=== PATIENT | female | born 1975 | race Two or more races ===

== ENCOUNTER 2021-06-21 12:10 | Inpatient (IN) | payer MEDICAID, OTHER ==
[~2021-06-21] VITALS: Ht 154.9 cm; Wt 57.6 kg
[2021-06-21] MEDS: BLOOD SUGAR DIAGNOSTIC STRIP TEST SCH ×5 (08:00→18:08)
[2021-06-21] MEDS ORDERED: SODIUM CHLORIDE 0.9% 1,000 ML IV ONE (12:45)
[2021-06-21 12:54] LABS: HEMATOCRIT. 42.6 % (36.0-48.0); HEMOGLOBIN. 13.2 g/dL (12.0-16.0); MEAN CORPUSCULAR HEMOGLOBIN 30.3 pg (28.0-32.0); MEAN CORPUSCULAR VOLUME 97.9 fL (81.0-99.0); MEAN PLATELET VOLUME 7.6 fl (7.4-10.4); PLATELET 530 x1000/uL (130-400); RED BLOOD CELL COUNT 4.36 mill/uL (4.2-5.4); RED CELL DISTRIBUTION WIDTH 13.5 % (11.6-14.6)
[2021-06-21 13:00] LABS: CHLORIDE 101 mEq/L (98-107); CLARITY URINE CLEAR (CLEAR); COLOR URINE YELLOW (YELLOW); KETONES URINE 4+ (NEGATIVE); LEUKOCYTE ESTERASE URINE NEGATIVE (NEGATIVE); NITRITE URINE NEGATIVE (NEGATIVE); OCCULT BLOOD URINE 1+ (NEGATIVE); PROTEIN URINE 2+ (NEGATIVE); SPECIFIC GRAVITY URINE 1.032 (1.005-1.030); UROBILINOGEN URINE 0.2 E.U./dL (0.2-1.0)
[2021-06-21] MEDS ORDERED: SODIUM BICARBONATE 50 MEQ in SODIUM CHLORIDE 0.45% 1,000 ML IV SCH (13:15)
[2021-06-21] MEDS ORDERED: INSULIN REGULAR (DRIP) 100 UNITS in SODIUM CHLORIDE 0.9% 100 ML IV ONE (13:15)
[2021-06-21 13:23] LABS: HCG SCREEN NEGATIVE
[2021-06-21 13:32] LABS: PLATELET ESTIMATE MARKEDLY INCREASED
[2021-06-21] MEDS ORDERED: INSULIN REGULAR (DRIP) 100 UNITS in SODIUM CHLORIDE 0.9% 99 ML IV SCH (14:30)
[2021-06-21] MEDS ORDERED: DEXTROSE 50% WATER 50ML SYRINGE IV PRN ×2 (14:30)
[2021-06-21] MEDS ORDERED: CEFTRIAXONE 1 G PREMIX 50 ML IV ONE (17:15)
[2021-06-21 19:15] LABS: PHOSPHORUS 4.4 mg/dL (2.5-4.9)
[2021-06-21 19:17] LABS: CHLORIDE 110 mEq/L (98-107)
[2021-06-21] MEDS ORDERED: SODIUM BICARBONATE 8.4% 1 MEQ/ML 50ML SYR IV ONE (19:45)
[2021-06-21] MEDS ORDERED: DEXT 5%/0.45% NACL 1000ML 1,000 ML IV SCH (20:45)
[2021-06-21 23:56] LABS: CHLORIDE 112 mEq/L (98-107)
[2021-06-22] VITALS (10 sets, daily range): BP systolic 130–159; BP diastolic 76–102
[2021-06-22 00:16] LABS: PHOSPHORUS 0.9 mg/dL (2.5-4.9)
[2021-06-22] MEDS ORDERED: KCL 20MEQ/100ML PREMIX 100 ML IV SCH (01:15)
[2021-06-22] MEDS ORDERED: POTASSIUM PHOS,M-BASIC-D-BASIC 20 MMOL in DEXTROSE 5% WATER 250 ML IV NR (01:30)
[2021-06-22 05:05] LABS: CHLORIDE 110 mEq/L (98-107)
[2021-06-22] MEDS: KCL 20MEQ/100ML PREMIX 100 ML IV SCH ×3 (07:43→10:00)
[2021-06-22] MEDS: BLOOD SUGAR DIAGNOSTIC STRIP TEST SCH ×7 (11:08→23:00)
[2021-06-22] MEDS: ONDANSETRON HCL 4MG/2ML INJ IV PRN (13:53)
[2021-06-22] MEDS: METOCLOPRAMIDE HCL 10MG/2ML VIAL IV SCH ×2 (14:02→18:17)
[2021-06-22] MEDS ORDERED: IPRATROPIUM/ALBUTEROL 0.5-3(2.5)MG/3ML NEB HHN PRN (15:30)
[2021-06-22] MEDS ORDERED: CEFTRIAXONE 1 G PREMIX 50 ML IV SCH (15:30)
[2021-06-22] MEDS ORDERED: HYDROCODONE/ACETAMINOPHEN 5/325MG TABLET PO PRN (15:30)
[2021-06-22] MEDS ORDERED: DOCUSATE SODIUM 100MG CAPSULE PO PRN (15:30)
[2021-06-22] MEDS ORDERED: MAGNESIUM/ALUMINUM HYDROXIDE/SIMETHICONE 30ML UDC PO PRN (15:30)
[2021-06-22] MEDS ORDERED: ACETAMINOPHEN 325MG TABLET PO PRN (15:30)
[2021-06-22] MEDS ORDERED: CLONIDINE 0.1MG TABLET PO PRN (15:30)
[2021-06-22] MEDS ORDERED: DEXT 5%/0.45% NACL 1000ML 1,000 ML IV SCH (15:30)
[2021-06-22 17:32] LABS: HEMATOCRIT. 33.5 % (36.0-48.0); HEMOGLOBIN. 11.4 g/dL (12.0-16.0); MEAN CORPUSCULAR HEMOGLOBIN 29.9 pg (28.0-32.0); MEAN PLATELET VOLUME 7.3 fl (7.4-10.4); PLATELET 377 x1000/uL (130-400); RED BLOOD CELL COUNT 3.81 mill/uL (4.2-5.4); RED CELL DISTRIBUTION WIDTH 12.3 % (11.6-14.6)
[2021-06-22] MEDS: DEXT 5%/0.45% NACL KCL 20MEQ/L 1,000 ML IV SCH (17:38)
[2021-06-22 17:40] LABS: CHLORIDE 108 mEq/L (98-107)
[2021-06-22] MEDS: CEFTRIAXONE 1,000 MG in DEXTROSE 5% WATER 50 ML IV SCH (17:42)
[2021-06-22 18:14] LABS: PLATELET ESTIMATE NORMAL
[2021-06-22 19:38] LABS: CLARITY URINE CLEAR (CLEAR); COLOR URINE YELLOW (YELLOW); KETONES URINE 2+ (NEGATIVE); LEUKOCYTE ESTERASE URINE NEGATIVE (NEGATIVE); NITRITE URINE NEGATIVE (NEGATIVE); OCCULT BLOOD URINE NEGATIVE (NEGATIVE); PROTEIN URINE 3+ (NEGATIVE); SPECIFIC GRAVITY URINE 1.016 (1.005-1.030)
[2021-06-22 19:47] LABS: OPIATES URINE SCREEN NEGATIVE (NEGATIVE)
[2021-06-22 19:49] LABS: *AMPHETAMINES SCREEN URINE NEGATIVE (NEGATIVE); *BARBITURATES SCREEN URINE NEGATIVE (NEGATIVE); *BENZODIAZEPINES SCREEN URINE NEGATIVE (NEGATIVE); *COCAINE SCREEN URINE NEGATIVE (NEGATIVE); CANNABINOID URINE SCREEN NEGATIVE (NEGATIVE); METHADONE URINE SCREEN NEGATIVE (NEGATIVE); PHENCYCLIDINE URINE SCREEN NEGATIVE (NEGATIVE)
[2021-06-22] MEDS: ENOXAPARIN 40MG/0.4ML SYR SUBCUT SCH (21:11)
[2021-06-23] VITALS (21 sets, daily range): BP systolic 123–148; BP diastolic 58–106
[2021-06-23] MEDS: METOCLOPRAMIDE HCL 10MG/2ML VIAL IV SCH ×5 (00:59→23:30)
[2021-06-23] MEDS: BLOOD SUGAR DIAGNOSTIC STRIP TEST SCH ×16 (01:00→21:12)
[2021-06-23] MEDS: DEXT 5%/0.45% NACL KCL 20MEQ/L 1,000 ML IV SCH ×2 (01:00→08:42)
[2021-06-23 01:14] LABS: CHLORIDE 111 mEq/L (98-107)
[2021-06-23] MEDS: ONDANSETRON HCL 4MG/2ML INJ IV PRN ×2 (05:00→13:00)
[2021-06-23 06:00] LABS: HEMATOCRIT. 37.5 % (36.0-48.0); HEMOGLOBIN. 12.6 g/dL (12.0-16.0); MEAN CORPUSCULAR HEMOGLOBIN 30.1 pg (28.0-32.0); MEAN CORPUSCULAR VOLUME 89.8 fL (81.0-99.0); MEAN PLATELET VOLUME 7.7 fl (7.4-10.4); PLATELET 372 x1000/uL (130-400); RED BLOOD CELL COUNT 4.18 mill/uL (4.2-5.4); RED CELL DISTRIBUTION WIDTH 12.4 % (11.6-14.6)
[2021-06-23 06:25] LABS: CHLORIDE 109 mEq/L (98-107)
[2021-06-23 06:41] LABS: LDL CHOLESTEROL 63 mg/dL (5-100)
[2021-06-23 06:42] LABS: HDL CHOLESTEROL 45 mg/dL (40-59); PHOSPHORUS 1.5 mg/dL (2.5-4.9); T4 FREE 1.44 ng/dL (0.76-1.46)
[2021-06-23] MEDS: PANTOPRAZOLE SODIUM 40 MG/VIAL IV SCH (08:40)
[2021-06-23 09:27] LABS: CHLORIDE 110 mEq/L (98-107)
[2021-06-23] MEDS ORDERED: LIDOCAINE HCL/PF 1% 2ML VIAL ONE (10:09)
[2021-06-23 10:31] LABS: BG BASE EXCESS -3.8 mmol/L (-2.0-2.0); BG CARBOXYHEMOGLOBIN 0.7 % (0.5-1.5); BG DEOXYHEMOGLOBIN 4.1 % (0.0-5.0); BG HCO3 ACT 18.8 mmol/L (22.0-26.0); BG OXYGEN SATURATION 95.9 % (92.0-98.5); BG OXYHEMOGLOBIN 95.2 % (94.0-97.0); BG PCO2 27.1 mmHg (35.0-45.0); BG PH 7.458 (7.350-7.450); BG PO2 70.5 mmHg (75.0-100.0); BG SAMPLE SITE RIGHT RADIAL; BG TOTAL HEMOGLOBIN 12.1 g/dL (12.0-18.0); BG VENT MODE ROOM AIR
[2021-06-23] MEDS ORDERED: INSULIN GLARGINE UD 100 UNITS/ML SYR SUBCUT NR (11:30)
[2021-06-23] MEDS: INSULIN LISPRO 100 UNITS/ML SUBCUT SCH ×3 (12:39→21:30)
[2021-06-23] MEDS ORDERED: MAGNESIUM 2 G PREMIX 50 ML IV NR (17:30)
[2021-06-23] MEDS ORDERED: POTASSIUM PHOS,M-BASIC-D-BASIC 20 MMOL in DEXT 5% WATER 243.3333 ML IV NR (17:30)
[2021-06-23 17:32] LABS: PLATELET ESTIMATE NORMAL
[2021-06-23] MEDS: CEFTRIAXONE 1,000 MG in DEXTROSE 5% WATER 50 ML IV SCH (17:50)
[2021-06-23] MEDS: ENOXAPARIN 40MG/0.4ML SYR SUBCUT SCH (21:30)
[2021-06-23] MEDS ORDERED: INSULIN GLARGINE UD 100 UNITS/ML SYR SUBCUT SCH (22:00)
[2021-06-24 00:20] VITALS: BP 142/77
[2021-06-24 01:04] LABS: CHLORIDE 107 mEq/L (98-107)
[2021-06-24] MEDS ORDERED: POTASSIUM CHLORIDE INJ 60 MEQ in DEXT 5% WATER 500 ML IV SCH (02:30)
[2021-06-24] MEDS ORDERED: POTASSIUM CHLORIDE INJ 60 MEQ in DEXT 5% WATER 250 ML IV SCH (02:30)
[2021-06-24 03:20] VITALS: BP 115/76
[2021-06-24] MEDS: METOCLOPRAMIDE HCL 10MG/2ML VIAL IV SCH ×3 (05:33→17:03)
[2021-06-24] MEDS: BLOOD SUGAR DIAGNOSTIC STRIP TEST SCH ×3 (07:43→16:56)
[2021-06-24 08:00] VITALS: BP 102/87
[2021-06-24] MEDS: INSULIN LISPRO 100 UNITS/ML SUBCUT SCH ×3 (08:20→17:05)
[2021-06-24] MEDS: PANTOPRAZOLE SODIUM 40 MG/VIAL IV SCH (08:21)
[2021-06-24 09:36] LABS: HEMATOCRIT. 34.6 % (36.0-48.0); HEMOGLOBIN. 11.7 g/dL (12.0-16.0); MEAN CORPUSCULAR HEMOGLOBIN 29.7 pg (28.0-32.0); MEAN CORPUSCULAR VOLUME 87.9 fL (81.0-99.0); MEAN PLATELET VOLUME 6.8 fl (7.4-10.4); PLATELET 412 x1000/uL (130-400); RED BLOOD CELL COUNT 3.93 mill/uL (4.2-5.4); RED CELL DISTRIBUTION WIDTH 12.4 % (11.6-14.6)
[2021-06-24 09:47] LABS: CHLORIDE 105 mEq/L (98-107)
[2021-06-24 09:54] LABS: PHOSPHORUS 2.2 mg/dL (2.5-4.9)
[2021-06-24 12:00] VITALS: BP 126/79
[2021-06-24] MEDS: DOXYCYCLINE HYCLATE 100MG CAPSULE PO SCH ×2 (12:02→20:46)
[2021-06-24] MEDS: INSULIN LISPRO (LOW DOSE) 100 UNITS/ML SUBCUT SCH ×2 (12:04→17:05)
[2021-06-24] MEDS ORDERED: INSULIN LISPRO 100 UNITS/ML SUBCUT SCH (12:30)
[2021-06-24 16:00] VITALS: BP 142/82
[2021-06-24] MEDS: CEFTRIAXONE 1,000 MG in DEXTROSE 5% WATER 50 ML IV SCH (17:03)
[2021-06-24 17:09] LABS: PLATELET ESTIMATE INCREASED
[2021-06-24] MEDS ORDERED: NALOXONE HCL 0.4MG/ML VIAL IV PRN (19:45)
[2021-06-24 20:00] VITALS: BP 137/81
[2021-06-24] MEDS: ENOXAPARIN 40MG/0.4ML SYR SUBCUT SCH (20:46)
[2021-06-24] MEDS ORDERED: INSULIN GLARGINE UD 100 UNITS/ML SYR SUBCUT SCH ×2 (22:00)
[2021-06-25] VITALS: BP 127/73
[2021-06-25] MEDS: METOCLOPRAMIDE HCL 10MG/2ML VIAL IV SCH ×3 (00:10→12:42)
[2021-06-25 04:00] VITALS: BP 119/69
[2021-06-25 07:10] LABS: HEMATOCRIT. 33.4 % (36.0-48.0); HEMOGLOBIN. 11.5 g/dL (12.0-16.0); MEAN CORPUSCULAR HEMOGLOBIN 29.6 pg (28.0-32.0); MEAN CORPUSCULAR VOLUME 86.2 fL (81.0-99.0); PLATELET 390 x1000/uL (130-400); RED BLOOD CELL COUNT 3.88 mill/uL (4.2-5.4); RED CELL DISTRIBUTION WIDTH 12.3 % (11.6-14.6)
[2021-06-25] MEDS ORDERED: INSULIN LISPRO 100 UNITS/ML SUBCUT SCH (07:30)
[2021-06-25] MEDS: INSULIN LISPRO (LOW DOSE) 100 UNITS/ML SUBCUT SCH ×2 (07:30→12:41)
[2021-06-25 07:41] VITALS: BP 119/65
[2021-06-25 07:46] LABS: CHLORIDE 102 mEq/L (98-107)
[2021-06-25] MEDS: BLOOD SUGAR DIAGNOSTIC STRIP TEST SCH ×2 (07:52→12:37)
[2021-06-25 08:01] LABS: PHOSPHORUS 2.5 mg/dL (2.5-4.9)
[2021-06-25] MEDS: DOXYCYCLINE HYCLATE 100MG CAPSULE PO SCH (08:44)
[2021-06-25] MEDS ORDERED: FAMOTIDINE 20MG/2ML VIAL IV SCH (09:00)
[2021-06-25] MEDS ORDERED: [UNRECOGNIZED DRUG - CODE] MC (10:03)
[2021-06-25] MEDS ORDERED: LANC-934 TP (10:03)
[2021-06-25] MEDS ORDERED: [UNRECOGNIZED DRUG - CODE] SQ (10:03)
[2021-06-25] MEDS ORDERED: LANTUSUD SUBCUT (10:03)
[2021-06-25] MEDS ORDERED: DOXY100C5 PO (10:03)
[2021-06-25] MEDS ORDERED: INSLIS SUBCUT (10:03)
[2021-06-25 11:06] VITALS: BP 119/65
[2021-06-25 11:30] VITALS: BP 120/65
[2021-06-25 14:08] LABS: PLATELET ESTIMATE NORMAL
[2021-06-25 15:56] VITALS: BP 125/79
== END 2021-06-25 18:35 | disposition home or self-care (01) | DRG 720 ==
LOC: ER 12:10 → MICUSO 16:32 → EDBEDREQTM 16:46 → EDBEDREQ 16:46 → MICUNO 06-22 16:07 → 5EST 06-23 22:54
PROVIDERS: ADMIT Internal Medicine; ATTEND Internal Medicine
DX: A41.9 Sepsis, unspecified organism (principal); E43 Unspecified severe protein-calorie malnutrition; E11.10 Type 2 diabetes mellitus with ketoacidosis without coma; J18.9 Pneumonia, unspecified organism; E83.51 Hypocalcemia; E83.39 Other disorders of phosphorus metabolism; E87.6 Hypokalemia; J45.909 Unspecified asthma, uncomplicated; Z20.822 Contact with and (suspected) exposure to COVID-19; K80.20 Calculus of gallbladder without cholecystitis without obstruction; D25.9 Leiomyoma of uterus, unspecified; Z89.512 Acquired absence of left leg below knee; Z98.891 History of uterine scar from previous surgery; Z83.3 Family history of diabetes mellitus; Z68.24 Body mass index [BMI] 24.0-24.9, adult; Z87.09 Personal history of other diseases of the respiratory system
CPT/HCPCS: 36415; 36600; 71045; 74176; 80048; 80053; 80061; 80076; 80305; 81003; 82330; 82375; 82805; 82962; 83036; 83735; 83880; 84100; 84134; 84145; 84439; 84443; 84484; 84681; 84703; 85025; 87426; 93005; 93970; 99291; C9113; J0696; J1650; J1815; J2405; J2765; J3475; J3480; J3490; J7030; J7040; J7050; J7060

== ENCOUNTER 2021-07-09 17:22 | Emergency (ER) | payer MEDICAID ==
[~2021-07-09] VITALS: Ht 152.4 cm; Wt 57.0 kg
[~2021-07-09 17:22] MED LIST: DOXY100C5 PO; INSLIS SUBCUT; LANC-934 TP; LANTUSUD SUBCUT; [UNRECOGNIZED DRUG - CODE] MC; [UNRECOGNIZED DRUG - CODE] SQ
[2021-07-09 19:30] LABS: BASOPHILS % 1.1 % (0.0-2.0); EOSINOPHILS % 3.5 % (0.0-5.0); HEMATOCRIT. 30.1 % (36.0-48.0); HEMOGLOBIN. 9.9 g/dL (12.0-16.0); LYMPHOCYTES % 19.5 % (20.0-50.0); MEAN CORPUSCULAR VOLUME 84.7 fL (81.0-99.0); MEAN PLATELET VOLUME 6.8 fl (7.4-10.4); MONOCYTES % 6.1 % (2.0-8.0); NEUTROPHILS % 69.8 % (40.0-76.0); PLATELET 539 x1000/uL (130-400); RED BLOOD CELL COUNT 3.55 mill/uL (4.2-5.4); RED CELL DISTRIBUTION WIDTH 12.2 % (11.6-14.6)
[2021-07-09 19:38] LABS: CHLORIDE 104 mEq/L (98-107)
[2021-07-09 19:44] LABS: BETA HYDROXYBUTYRATE 0.1 mMol/L (0.0-0.3)
[2021-07-09] MEDS: GUAIFENESIN/CODEINE 200-20MG/10ML UDC PO ONE (22:55)
[2021-07-09] MEDS: IBUPROFEN 600MG TABLET PO ONE (22:55)
[2021-07-10] MEDS ORDERED: BENZ-16 MT (00:03)
[2021-07-10] MEDS ORDERED: AMOX-424 MT (00:03)
[2021-07-10 00:25] VITALS: BP 127/69
== END 2021-07-10 00:39 | disposition home or self-care (01) ==
LOC: ER 17:22
DX: J18.9 Pneumonia, unspecified organism (principal); E11.9 Type 2 diabetes mellitus without complications; Z98.890 Other specified postprocedural states
CPT/HCPCS: 36415; 71045; 80053; 82010; 84484; 85025; 93005; 99285